=== PATIENT | female | born 1985 | race Caucasian/White ===

== ENCOUNTER 2018-07-03 12:55 | Inpatient (IN) | payer MEDICAID ==
[~2018-07-03] VITALS: Ht 152.4 cm; Wt 70.9 kg
[2018-07-03 13:26] VITALS: Ht 152.4 cm; Wt 70.9 kg
[2018-07-03 13:27] VITALS: BP 125/81; PULSE 77
[2018-07-03] MEDS ORDERED: PNV11TAB PO (13:29)
[2018-07-03] MEDS ORDERED: METH10TA2 PO (13:30)
[2018-07-03] MEDS ORDERED: AMPICILLIN 2 GM/NS (PMX) 100 ML IV ONE (14:30)
[2018-07-03] MEDS ORDERED: OXYTOCIN 30 UNITS/LR 500 ML IV PRN ×2 (14:30→21:00)
[2018-07-03] MEDS ORDERED: MISOPROSTOL 200 MCG TAB PR PRN ×2 (14:30→21:00)
[2018-07-03] MEDS ORDERED: CARBOPROST 250 MCG INJ IM PRN ×2 (14:30→21:00)
[2018-07-03] MEDS ORDERED: LIDOCAINE 1% (MPF) 30 ML INJ INJ PRN (14:30)
[2018-07-03] MEDS ORDERED: BUTORPHANOL 1 MG INJ IV PRN (14:30)
[2018-07-03] MEDS ORDERED: OXYTOCIN 30 UNITS/LR 500 ML IV SCH ×2 (14:30→21:00)
[2018-07-03] MEDS ORDERED: METHYLERGONOVINE 0.2 MG INJ IM PRN ×2 (14:30→21:00)
[2018-07-03] MEDS ORDERED: BUTORPHANOL 2 MG INJ IV PRN (14:30)
[2018-07-03] MEDS: LACTATED RINGER'S 1,000 ML IV SCH ×3 (15:15→16:47)
--- NOTE | 2018-07-03 16:23 | PREAC ---
Date/Time of Note Date/Time of Note DATE: 07/03/18 TIME: 16:21 Anesthesia Eval and Record Evaluation Time Pre-Procedure Interview DATE: 07/03/18 TIME: 16:21 Age 33 Sex female NPO: 8 hrs Preoperative diagnosis nonreassuring fHR Planned procedure c section Past Medical History Past Medical History: Includes Recreational drugs: Heroin, Other (meth stopped 3 m age on ,ethadone. relapse one month ago for 3 days) Surgery & Anesthesia Issues No known issue Meds Anticoagulation: No Beta Stephanie within 24 hr: No Reason Beta Stephanie not given: Pt. not on B-Stephanie Reported Medications Methadone Hcl* (Methadone*) 10 Mg Tab, 10 MG PO, TAB 07/03/18 [id number] ( ) 1 Each Tablet, 1 TAB PO DAILY, TAB 07/03/18 Current Medications Lactated Ringer's 1,000 ml @ 125 mls/hr Q8H IV Last administered on 07/03/18at 15:57; Admin Dose 125 MLS/HR; Start 07/03/18 at 14:08 Ampicillin 50 ml @ 100 mls/hr Q4H IV ; Start 07/03/18 at 18:30 Butorphanol Tartrate (Stadol) 1 mg Q2H PRN IV .PAIN; Start 07/03/18 at 14:30 Butorphanol Tartrate (Stadol) 2 mg Q2H PRN IV .PAIN; Start 07/03/18 at 14:30 Lidocaine (Xylocaine 1% (Mpf)) 30 ml ONCE PRN INJ .EPISIOTOMY; Start 07/03/18 at 14:30 Oxytocin/Lactated Ringer's 500 ml @ 500 mls/hr ONCE POST IV ; Start 07/03/18 at 14:30 Oxytocin/Lactated Ringer's 500 ml @ 125 mls/hr POST IV ; Start 07/03/18 at 14:30 Oxytocin/Lactated Ringer's 500 ml @ 0 mls/hr ONCE PRN IV .VAGINAL BLEEDING; Start 07/03/18 at 14:30 Methylergonovine Maleate (Methergine) 0.2 mg ONCE PRN IM .VAGINAL BLEEDING; Start 07/03/18 at 14:30 Carboprost Tromethamine (Hemabate) 250 mcg ONCE PRN IM .VAGINAL BLEEDING; Start 07/03/18 at 14:30 Misoprostol (Cytotec) 1,000 mcg ONCE PRN NV .VAGINAL BLEEDING; Start 07/03/18 at 14:30 Cefazolin Sodium/ Dextrose 50 ml @ 100 mls/hr ONCE ONCE IVPB ; Start 07/03/18 at 17:00; Stop 07/03/18 at 17:29 Meds reviewed: Yes Allergies Coded Allergies: No Known Allergy (Unverified , 07/03/18) Allergies Reviewed: Yes Labs/Studies Labs Reviewed: Reviewed by anesthesiologist Result Diagram: 07/03/18 1518 Laboratory Tests 07/03/18 15:18 Blood Bank Test 07/03/18 15:18 Blood Type O POSITIVE Rh Immune Globulin Candidate NO test: Positive Studies: ECG (n/a), CXR (n/a) Pre-procedure Exam Last vitals Vital Signs Date Temp Pulse Resp B/P (MAP) Pulse Ox O2 O2 Flow FiO2 Time Delivery Rate 07/03/18 97.7 77 125/81 13:27 (96) Airway: Adequate mouth opening Mallampati: Mallampati I Teeth: Normal Lung: Normal Heart: Normal ASA Physical Status ASA physical status: 2 Emergency: E Planned Anesthetic Neuraxial: Spinal Planned Pain Management Sub-arachniod narcotics Pre-operative Attestations Prior to commencing anesthesia and surgery, the patient was re-evaluated, there was verification of: *The patient's identity *The results of appropriate recent lab work and preoperative vital signs *The above evaluation not changing prior to induction *Anesthetic plan, risk benefits, alternative and complications discussed with patient/family; questions answered; patient/family understands, accepts and wishes to proceed. SONNY RANGEL MD Jul 03, 2018 16:23
[2018-07-03] MEDS ORDERED: ONDANSETRON 4 MG INJ ONE (16:46)
[2018-07-03] MEDS ORDERED: morphine SULFATE/PF (10 MG/10 ML) INJ ONE (16:46)
[2018-07-03] MEDS ORDERED: PHENYLephrine 10 MG INJ ONE (16:47)
[2018-07-03] MEDS ORDERED: OXYTOCIN 30 UNITS/LR 500 ML IV ONE (16:47)
[2018-07-03] MEDS ORDERED: KETOROLAC 30 MG INJ ONE (16:47)
[2018-07-03] MEDS ORDERED: METOCLOPRAMIDE 10 MG INJ ONE (16:47)
--- NOTE | 2018-07-03 16:57 | HP ---
Date/Time of Note Date/Time of Note DATE: 07/03/18 TIME: 16:49 OB - History Hx of Present Free Text/Dictation 33 y.o A4 here at triage with c/o uc's q20min with vaginal spotting at 38w 1d with intact membrane. VE /-2 reexam showed some change noted EFM shows variable dec here and there bu t not significant. hx of usage of heroin for 3yrs , been on methadone 40mg daily for the last 3mo admtted for expectant management with close observation Chief Complaint: uc's Estimated Due Date: Jul 16, 2018 : 8 Para: 3 Spontaneous : 0 Therapeutic : 4 Care: Other Obstetrical Complications: None Medical Complications: Other (heroin use ) Past Family/Social History * Past Medical, Surgical, Family and Obstetric Histories reviewed from chart. Blood Type: Unknown Rubella: unknown RPR/VDRL: Unknown GBS Status: Unknown HBsAG: Unknown OB Admission Exam Vital Signs Vital Signs Vital Signs Date Temp Pulse Resp B/P (MAP) Pulse Ox O2 O2 Flow FiO2 Time Delivery Rate 07/03/18 97.7 77 125/81 13:27 (96) Physical Exam HEENT: WNL Heart: Rhythm Normal Lungs: Clear, Equal Abdomen: WNL Extremities: Normal Reflexes: Normal Cervical Dilatation: 3cm Effacement: 75% Station: -2 Membranes: Intact Amniotic Fluid: Unevaluable Heart Rate: 140's Accelerations: Accelerations Present Decelerations: Variable Decelerations Varibility: Minimum Contractions on Admission: >10 Minutes Apart Intensity: Mild Last 72 hours Lab Results CBC & BMP 07/03/18 15:18 OB Assessment/Plan Other Assessment: IUP 38w1d in early labor Plan: Expectant Management HARINDER SALAZAR MD Jul 03, 2018 16:57
[2018-07-03] MEDS ORDERED: CEFAZOLIN 2 GM/50 ML (PMX) 50 ML IVPB ONE (17:00)
[2018-07-03] MEDS ORDERED: CITRIC ACID/NA CITRATE 30 ML CUP PO ONE (17:00)
--- NOTE | 2018-07-03 17:07 | QN ---
Documentation Comment bradycaria and prolonged declerations will be doing an emergency c/s nursing staff aware PRINCE WELLS MD Jul 03, 2018 17:07
--- NOTE | 2018-07-03 17:31 | OPR ---
Operative Report Planned Procedure Procedure date Jul 03, 2018 Procedure(s) primary c/s Performed by see signature line Garbage Truck Driver: HARINDER SALAZAR MD Pre-procedure diagnosis none reassuring tracing [id number] Anesthesia Type: [id number] spinal Post-Procedure Post-procedure diagnosis same Findings Live Baby [], Apgars [] and [], weight [], position [], [] presentation []cord. Estimated Blood Loss: 600 - 700 mls Specimen(s) none Grafts/Implant(s) none Complication(s) none Pt Condition post procedure: stable Procedure Description Under satisfactory spinal [] anesthesia, the patient was prepped and draped and placed in a supine position, tilted to the left. Pfannenstiel incision was made, carried through the subcutaneous tissue. Bleeders brought under control with electrocautery. Fascia incised to the length of the incision. Rectus muscles from the fascia, divided midline. Peritoneum exposed, entered through a transverse incision. Exploration of abdomen revealed gravid uterus. Bladder flap was developed. Transverse incision was made in the lower segment of the uterus. Amniotic sac ruptured. no [] amniotic fluid noted. [] Nasal oropharyngeal suction was performed. The baby was handed to the team for immediate attention. The placenta was delivered manually intact. Uterine cavity was cleaned with wet sponge and drainage established. Uterus closed in 2 layers using [one monocryl] in continuous fashion. Peritoneal cavity irrigated with warm saline. Sponge, needle and instrument count reported to be correct. Abdominal peritoneum closed with []one monocryl continuously. Rectus muscle approximated with []. Fascia closed with [one monocryl], and skin closed with theresa. Estimated blood loss [700]mL. PRINCE WELLS MD Jul 03, 2018 17:31
[2018-07-03] MEDS: OXYTOCIN 30 UNITS/LR 500 ML IV SCH ×2 (18:08→20:33)
[2018-07-03] MEDS ORDERED: AMPICILLIN 1 GM/NS (PMX) 50 ML IV SCH (18:30)
[2018-07-03 20:25] VITALS: BP 110/72; PULSE 81; RESP 18
[2018-07-03 20:55] VITALS: BP 105/70; PULSE 75; RESP 18
[2018-07-03] MEDS ORDERED: NA PHOSPHATE/BIPHOS 133 ML ENEMA PR PRN (21:00)
[2018-07-03] MEDS ORDERED: HYDROCODONE/APAP (5/325) TAB PO PRN (21:00)
[2018-07-03] MEDS ORDERED: NACL 0.9% 3 ML SYG IV SCH (21:00)
[2018-07-03] MEDS ORDERED: LACTATED RINGER'S 1,000 ML IV SCH (21:00)
[2018-07-03] MEDS ORDERED: LANOLIN HPA 1 PKT TOP PRN (21:00)
[2018-07-03] MEDS ORDERED: morphine 2 MG INJ IV PRN ×3 (22:00)
[2018-07-03] MEDS ORDERED: DIPHENHYDRAMINE 50 MG INJ IV PRN (22:00)
[2018-07-03] MEDS: IBUPROFEN 800 MG TAB PO SCH (22:00)
[2018-07-03] MEDS ORDERED: NALOXONE (0.4 MG/ML) INJ IV PRN (22:00)
[2018-07-03] MEDS ORDERED: ONDANSETRON 4 MG INJ IV PRN (22:00)
[2018-07-03] MEDS ORDERED: HYDROmorphONE 0.5 MG/0.5 ML SYG IV PRN ×2 (22:00)
[2018-07-03] MEDS: KETOROLAC 30 MG INJ IV PRN (22:34)
[2018-07-04] VITALS: BP 108/75; PULSE 64; RESP 18
[2018-07-04 04:05] VITALS: BP 113/56; PULSE 74; RESP 16
[2018-07-04] MEDS: IBUPROFEN 800 MG TAB PO SCH ×3 (06:00→22:36)
--- NOTE | 2018-07-04 06:48 | PAC ---
Date/Time of Note Date/Time of Note DATE: 07/04/18 TIME: 06:47 Post-Anesthesia Notes Post-Anesthesia Note Last documented vital signs Vital Signs Date Temp Pulse Resp B/P (MAP) Pulse Ox O2 O2 Flow FiO2 Time Delivery Rate 07/04/18 98.2 74 16 113/56 99 Room Air 04:05 (75) Activity: WNL Respiratory function: WNL Cardiovascular function: WNL Mental status: Baseline Pain reasonably controlled: Yes Hydration appropriate: Yes Nausea/Vomiting absent: No SONNY RANGEL MD Jul 04, 2018 06:48
--- NOTE | 2018-07-04 06:49 | OPPN ---
Date/Time of Note Date/Time of Note DATE: 07/04/18 TIME: 06:48 Anesthesia Follow up Anesthesia Follow up Last documented vital signs Vital Signs Date Temp Pulse Resp B/P (MAP) Pulse Ox O2 O2 Flow FiO2 Time Delivery Rate 07/04/18 98.2 74 16 113/56 99 Room Air 04:05 (75) Respiratory function: WNL Cardiovascular function: WNL Comments A 33 year female s/p duramorph for post op apin POD #1 is fine. No pain, headache, itching, N/V. neural deficit. care per surgery SONNY RANGEL MD Jul 04, 2018 06:49
[2018-07-04 08:39] VITALS: BP 112/66; PULSE 80; RESP 18
[2018-07-04] MEDS: METHADONE 10 MG TAB PO SCH (10:05)
[2018-07-04 11:50] VITALS: BP 109/73; PULSE 89; RESP 18
[2018-07-04] MEDS: KETOROLAC 30 MG INJ IV PRN (14:33)
[2018-07-04 16:30] VITALS: BP 105/52; PULSE 85; RESP 20
[2018-07-04 19:45] VITALS: BP 104/57; PULSE 81; RESP 18
[2018-07-04] MEDS ORDERED: hydrOXYzine HCL 10 MG TAB PO ONE (23:00)
[2018-07-05 05:11] VITALS: BP 109/55; PULSE 83; RESP 18
[2018-07-05] MEDS: IBUPROFEN 800 MG TAB PO SCH ×3 (06:03→21:32)
[2018-07-05 08:25] VITALS: BP 133/56; PULSE 95; RESP 20
[2018-07-05] MEDS: METHADONE 10 MG TAB PO SCH (09:29)
[2018-07-05 15:31] VITALS: BP 93/67; PULSE 90; RESP 20
[2018-07-05 19:45] VITALS: BP 114/60; PULSE 89; RESP 18
[2018-07-05] MEDS: hydrOXYzine HCL 10 MG TAB PO SCH (22:39)
[2018-07-06 03:45] VITALS: BP 106/58; PULSE 82; RESP 18
[2018-07-06] MEDS: IBUPROFEN 800 MG TAB PO SCH ×2 (05:33→14:52)
--- NOTE | 2018-07-06 08:14 | DS ---
Date/Time of Note Date/Time of Note DATE: 07/06/18 TIME: 08:13 Discharge Summary Admission/Discharge Info Admit Date/Time Jul 03, 2018 at 14:10 Discharge Date/Time Discharge Diagnosis term Patient Condition: Stable Hospital Course unremarkable Home Meds Reported Medications Methadone Hcl* (Methadone*) 10 Mg Tab, 10 MG PO, TAB 07/03/18 [id number] ( 19) 1 Each Tablet, 1 TAB PO DAILY, TAB 07/03/18 Primary Care Provider Care Physician No Primary PRINCE WELLS MD Jul 06, 2018 08:14
[2018-07-06 08:30] VITALS: BP 110/61; PULSE 84; RESP 17
[2018-07-06] MEDS ORDERED: DIPHTH/TET/ACEL PERTUSS (ADULT) 0.5 ML VIAL IM* ONE (09:00)
[2018-07-06] MEDS ORDERED: MEASLES,MUMPS,RUBELLA VACCINE INJ SC* ONE (09:00)
[2018-07-06] MEDS: METHADONE 10 MG TAB PO SCH (09:40)
[2018-07-06] MEDS: hydrOXYzine HCL 10 MG TAB PO SCH (09:40)
--- NOTE | 2018-07-07 19:07 | DELSUM ---
Delivery Summary A-C Datetime Report Generated by CPN: 07/07/2018 19:07 DELIVERY PERSONNEL Larr[place]: [place], May MATERNAL INFORMATION Delivery Anesthesia: Spinal Medications in Delivery: SEE ANESTHESIA RECORD Delivery QBL (ml): 500 Placenta Cultured: Yes Maternal Complications: Other Other Maternal Complications: VARIABLES LABOR SUMMARY EDC: 07/16/2018 00:00 No. Babies in Womb: 1 Attempted: No Labor Anesthesia: None LABOR INFORMATION Reason for Induction: Not Applicable Onset of Labor: 07/03/2018 08:00 Oxytocin: N/A Group B Beta Strep: Not Done Antibiotics # of Doses: 1 Antibiotics Time of Last Dose: 07/03/2018 17:01 Steroids Given: None Reason Steroids Not Administered: Not Applicable MEMBRANES Membranes Rupture Method: Artificial Rupture of Membranes: 07/03/2018 17:13 Length of Rupture (hr): 0.00 Amniotic Fluid Color: Clear Amniotic Fluid Amount: Scant Amniotic Fluid Odor: None STAGES OF LABOR Stage 3 hr: 0 Stage 3 min: 1 Total Time in Labor hr: 9 Total Time in Labor min: 14 CSECTION DELIVERY Primary Indication: Nonreassuring Stat Secondary Indication: N/A CSection Urgency: Non Elective CSection Incidence: Primary Labor: Labor Elective: Nonelective CSection Incision: Lower Uterine Transverse BABY A INFORMATION Infant Delivery Date/Time: 07/03/2018 17:13 Method of Delivery: Born in Route : No : N/A Forceps: N/A Vacuum Extraction: N/A Shoulder Dystocia : N/A SHOULDER DYSTOCIA BABY A Delivery Date/Time: 07/03/2018 17:13 PRESENTATION/POSITION BABY A Presentation: Cephalic Cephalic Presentation: Vertex Vertex Position: Left Occipital Anterior Breech Presentation: N/A PLACENTA INFORMATION BABY A Placenta Delivery Time : 07/03/2018 17:14 Placenta Method of Delivery: Manual Removal Placenta Status: Delivered SCORES BABY A Heart Rate 1 min: >100 bpm Resp Effort 1 min: Good Cry Reflex Irritability 1 min: Cough/Sneeze/Pulls Away Muscle Tone 1 min: Active Motion Color 1 min: Blue/Pale Resuscitation Effort 1 min: Tactile Stimulation SCORE 1 MIN: 8 Heart Rate 5 min: >100 bpm Resp Effort 5 min: Good Cry Reflex Irritability 5 min: Cough/Sneeze/Pulls Away Muscle Tone 5 min: Active Motion Color 5 min: Body [place], Extremit Blue Resuscitation Effort 5 min: Tactile Stimulation SCORE 5 MIN: 9 INFANT INFORMATION BABY A Gestational Age at Delivery: 38.1 Gestational Status: Early Term- 37- 38.6 Weeks Outcome : Liveborn Infant Condition : Stable Sex: Female IDENTIFICATION/MEDS BABY A ID Band Number: [id number] ID Band Location: Right Leg; Left Arm Sensor Applied: Yes Sensor Number: [id number] Sensor Location : Cord Clamp Vitamin K Given : Not Given Erythromycin Given: Not Given WEIGHT/LENGTH BABY A Birthweight (gm): 2800 Infant Weight (lb): 6 Weight (oz): 3 Length (in): 18.00 Infant Length (cm): 45.72 CORD INFORMATION BABY A No. 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
== END 2018-07-06 16:00 | disposition home or self-care (01) | DRG 788 ==
LOC: L-D 12:55 → OBT 12:55 → L-D 14:10 → OBT 14:14 → L-D 14:27 → PP1 20:28
PROVIDERS: ADMIT Obstetrics & Gynecology; ATTEND Obstetrics & Gynecology
PROC: 10D00Z1 Extraction of Products of Conception, Low, Open Approach (ICD-10-PCS; principal; 2018-07-03 16:45)
DX: O76 Abnormality in fetal heart rate and rhythm complicating labor and delivery (principal); Z3A.38 38 weeks gestation of pregnancy; Z37.0 Single live birth
CPT/HCPCS: 36415; 36600; 80307; 82803; 85025; 85610; 85730; 86592; 86850; 86900; 86901; 87340; 88307; 90715; 99464; G0463; J0690; J1885; J2274; J2405; J2590; J2765; J7120